=== PATIENT | female | born 1960 | race African-American/Black ===

== ENCOUNTER → 2022-05-01 | Outpatient (CLI) | payer MEDICAID | END | disposition home or self-care (01) | LOC: Rad HDHVI 08:06 | PROVIDERS: ATTEND Internal Medicine Cardiovascular Disease | DX: I08.1 Rheumatic disorders of both mitral and tricuspid valves (principal); R00.2 Palpitations; R07.89 Other chest pain | CPT/HCPCS: 93306 ==

== ENCOUNTER → 2022-05-02 | Outpatient (CLI) | payer MEDICAID ==
[~2022-05-02] VITALS: Ht 165.1 cm; Wt 59.0 kg
== END | disposition home or self-care (01) ==
LOC: Rad HDHVI 08:00
PROVIDERS: ATTEND Internal Medicine Cardiovascular Disease
DX: R06.02 Shortness of breath (principal); I49.3 Ventricular premature depolarization; R07.89 Other chest pain; R00.2 Palpitations; I20.0 Unstable angina; F17.210 Nicotine dependence, cigarettes, uncomplicated; Z82.49 Family history of ischemic heart disease and other diseases of the circulatory system; Z13.0 Encounter for screening for diseases of the blood and blood-forming organs and certain disorders involving the immune mechanism
CPT/HCPCS: 78452; 93017; 96374; A9500

== ENCOUNTER → 2024-04-14 | Emergency (ER) | payer MEDICARE, MEDICAID ==
[~2024-04-14] VITALS: Ht 162.6 cm; Wt 55.4 kg
[2024-04-14 12:10] VITALS: TEMP 97.5
[2024-04-14 12:16] VITALS: BP 113/53; PULSE 73; RESP 12; O2SAT 99
== END | disposition left against medical advice (07) ==
LOC: ER 11:31
DX: M79.605 Pain in left leg (principal); Z53.21 Procedure and treatment not carried out due to patient leaving prior to being seen by health care provider